=== PATIENT | female | born 1975 | race Caucasian/White ===

== ENCOUNTER → 2017-10-29 | Outpatient (CLI) | payer OTHER ==
[~2017-10-29] MED LIST: CYAN50008 PO; ESOM20CA PO; IPRA15SP NS; LEVO25TA4 PO; LUBI24CA7 PO; MELO15TA24 PO; MULT-224 PO; OXYC1TAB7 PO; PREG300C PO; SUVO20TA PO
== END ==
LOC: STAR 12:29
PROVIDERS: ATTEND Obstetrics & Gynecology Female Pelvic Medicine and Reconstructive Surgery
DX: Z02.9 Encounter for administrative examinations, unspecified (principal)